=== PATIENT | female | born 1995 | race Caucasian/White ===

== ENCOUNTER 2016-06-05 14:30 | Emergency (ER) | payer OTHER ==
--- NOTE | ~2016-06-05 | CT2 ---
[facility] A Service of [facility] & [facility] RADIOLOGY TEXT RESULTS PATIENT: ROMAN SANDY LOCATION: SED : [birth year] UNIT #: [id number] AGE: [address]: Justin Cohen MD SEX: F ORDER DR: [id number] [place] [id number] E MR#: [id number] Acc #: [id number] NAME: ROMAN SANDY : 1995 SEX: F STUDY DATE/TIME: 06/05/2016 15:04 UNIT: SED ROOM: STUDY DESCRIPTION: CT Abd and Pelv W Cont Attending Physician: Justin Cohen M.D. Referring Physician: Justin Cohen M.D. Ordering Physician: Justin Cohen M.D. Primary Care Physician: No Primary Care Physician MEDICAL IMAGING REPORT This report is preliminary unless electronic signature is present. EXAM CT of the abdomen and pelvis with IV contrast media 06/05/2016 HISTORY Nausea, vomiting and right lower quadrant pain since this morning. TECHNIQUE Transaxial imaging of the abdomen and pelvis was obtained with IV contrast media. This CT exam was performed with one or more of the following radiation dose reduction techniques: automatic exposure control, adjustment of mA and/or kV according to patient size, and iterative reconstruction. FINDINGS Lung bases are clear. The liver and spleen are normal. The gallbladder is surgically absent. The pancreas and adrenal glands are normal. The left kidney is normal. On the right side the patient has a nonobstructing stone in a midpole emilie measuring approximately 3 mm in diameter. No other stones are identified. There is no hydronephrosis or hydroureter. No ureteral stones are identified. The appendix in this patient is slightly thickened. It measures about 9 mm in greatest thickness. There is very subtle edema in the adjacent fat. No other dilated or thickened loops of bowel are seen. The uterus is unremarkable. There is a right adnexal cyst measuring 2.7 cm in greatest diameter. There is are several small left adnexal cysts. Uterus is deviated to the left of midline but is otherwise normal. Bladder is normal. There is no free fluid. CONCLUSION 1. Thickened appendix measuring about 9 mm in diameter with very mild adjacent edema in the fat consistent with acute appendicitis. 2. Bilateral small follicular cysts the largest measuring 2.7 cm on the right. [facility] A Service of [facility] & [facility] RADIOLOGY TEXT RESULTS PATIENT: ROMAN SANDY LOCATION: [facility] : [birth year] UNIT #: [id number] AGE: [address]: Justin Cohen MD SEX: F ORDER DR: 3. Postop changes of prior cholecystectomy. 4. 3 mm nonobstructing right renal stone. STAT * RESULT Dictated by... Shaquille Lugo M.D. THIS IS AN ELECTRONICALLY VERIFIED REPORT Shaquille Lugo M.D. at 06/09/2016 2:43 PM DEBORAH/cindy TD: 06/05/2016 15:41 JOB #: [id number] MEDICAL IMAGING REPORT Page 1 of 1
[2016-06-05 13:29] LABS: URINE SOURCE CLEAN CATCH
[2016-06-05 13:31] LABS: URINE APPEARANCE CLEAR; URINE BILIRUBIN NEG (NEG); URINE BLOOD NEG (NEG); URINE COLOR YELLOW; URINE GLUCOSE NEG (NORM); URINE KETONE NEG (NEG); URINE LEUKOCYTE ESTERASE NEG (NEG); URINE NITRATE NEG (NEG); URINE PROTEIN NEG (NEG); URINE SPECIFIC GRAVITY 1.015 (1.003-1.035); URINE UROBILINOGEN 0.2 MG/DL (NORM)
[2016-06-05 13:35] LABS: MICRO INDICATED? NO
[2016-06-05 14:05] LABS: BASOPHIL# 0.1 X10e3 (0-0.3); BASOPHIL% 0.4 % (0-2.5); EOSINOPHIL% 0.1 % (0.0-7.0); HEMATOCRIT 40.5 % (35.0-45.0); HEMOGLOBIN 13.8 gm/dL (12.0-16.0); LYMPHOCYTE# 1.3 X10e3 (1.0-3.5); LYMPHOCYTE% 10.1 % (17.0-45.0); MEAN CELL VOLUME 84.2 FL (83-96); MEAN CORPUSCULAR HEMOGLOBIN 28.8 PG (28-34); MEAN CORPUSCULAR HGB CONC 34.2 g/dL (30-36); MEAN PLATELET VOLUME 9.3 FL (6.5-11.5); MONOCYTE# 0.5 X10e3 (0-1.0); MONOCYTE% 3.4 % (3.0-12.0); NEUTROPHIL# 11.5 X10e3 (1.5-7.1); PLATELET COUNT 239 X10e3 (140-420); WHITE BLOOD COUNT 13.4 X10e3 (4.0-10.5)
[2016-06-05 14:09] LABS: DIFF IND NO
[2016-06-05 14:26] LABS: BILIRUBIN,TOTAL 1.1 mg/dL (0.2-2.0); BUN/CREATININE RATIO 12.5; CALCIUM SERUM 9.6 mg/dL (8.4-10.2); CREATININE SERUM 0.8 mg/dL (0.6-1.4); POTASSIUM 3.6 mmol/L (3.5-5.1); PROTEIN TOTAL SERUM 7.8 g/dL (6.0-8.3)
[~2016-06-05 14:30] MED LIST: VYVANSE10 MG
== END 2016-06-05 17:20 ==
LOC: SED 14:30
PROVIDERS: Emergency Medicine
DX: K35.80 Unspecified acute appendicitis (principal)
CPT/HCPCS: 36415; 74177; 80053; 81003; 82150; 83690; 84703; 85025; 96374; 96375; 96376; 99285; J2270; J2405; J2543; Q9967